=== PATIENT | female | born 1950 | race Caucasian/White ===

== ENCOUNTER 2016-07-20 14:19 | Emergency (ER) | payer BC ==
[~2016-07-20] VITALS: Ht 165.1 cm; Wt 83.6 kg
[~2016-07-20 14:19] MED LIST: Atarax,Vistaril PO; BUDEPRION SR150 MG PO; CELEBREX200 MG PO; CLEOCIN HCL75 MG PO; Coumadin Daily Dose PO; DURAGESIC12 MICROGR TD; FLEXERIL10 MG PO; FUROSEMIDE80 MG PO; GARLIC OIL1 EAC1 PO; HYDROCODON-ACE1 EAC5 PO; HYDROCODON-ACE1 EAC7 PO; IRON325 MG PO; K-DUR20 MEQ PO; LASIX80 MG PO; LEXAPRO20 MG PO; MIRALAX, GLYCO255 G1 PO; PRILOSEC OTC20 MG PO; PRILOSEC20 MG PO; SYNTHROID200 MCG PO; SYNTHROID25 MCG PO; THERA TEARS1 EAC1 OP; TIZANIDINE HCL4 MG PO; TOVIAZ4 MG PO; TOVIAZ8 MG PO; TRAZODONE HCL50 MG PO; TYLENOL WITH C1 EACH PO; VITAMIN B-12500 MC3 PO; VITAMIN B12-FO1 EACH PO; VITAMIN C1000 MG PO; VITAMIN C500 MG PO; VITAMIN D35000 UNIT PO; Vitamin D PO; WELLBUTRIN SR150 MG PO; [UNRECOGNIZED DRUG - REMARK]
[2016-07-20 16:19] LABS: BASOPHIL COUNT 0.1 K/uL (0-0.1); EOSINOPHIL (%) 1.6 % (0-5); EOSINOPHIL COUNT 0.2 K/uL (0-0.3); HEMATOCRIT 44.9 % (36.0-46.0); IMMATURE GRANULOCYTE (%) 0.3 % (0.0-0.7); INSTRUMENT ABS NEUTROPHIL CT 7.5 K/uL; LYMPHOCYTE COUNT 1.2 K/uL (1.0-2.8); MCH 29.2 PG (29.0-34.0); MCHC 32.5 G/DL (30.0-36.0); MCV 89.8 FL (83-99); MEAN PLAT.VOLUME 9.2 uM^3 (9.5-12.4); MONOCYTE (%) 5.6 % (3-12); MONOCYTE COUNT 0.5 K/uL (0-0.8); NEUTROPHIL (%) 79.3 % (45-76); NEUTROPHIL COUNT 7.5 K/uL (1.8-6.4); PLATELET COUNT 263 K/uL (156-360); RBC DIS.WIDTH-CV 12.7 % (11.8-14.6); WHITE BLOOD COUNT 9.4 K/uL (4.1-10.2)
[2016-07-20 16:35] LABS: CHLORIDE 104 mEq/L (99-109); POTASSIUM 4.4 mEq/L (3.7-5.4); SODIUM 141 mEq/L (136-147)
[2016-07-20 16:36] LABS: GLUCOSE 99 mg/dL (70-99)
[2016-07-20 16:38] LABS: ANION GAP 12 MEQ/L (2-14)
[2016-07-20 16:40] LABS: GFR ESTIMATE (CALCULATED) > 59 mL/min/
[2016-07-20 16:41] LABS: UREA NITROGEN (BUN) 17 mg/dL (9-23)
[2016-07-20] MEDS ORDERED: TRAMADOL HCL50 MG PO (17:46)
[2016-07-20] MEDS ORDERED: LEVAQUIN250 MG PO (17:46)
[2016-07-20 20:27] VITALS: BP 140/70
== END 2016-07-20 20:09 | disposition home or self-care (01) ==
LOC: EME 14:19
PROVIDERS: Physician Assistant
DX: L04.0 Acute lymphadenitis of face, head and neck (principal); E05.00 Thyrotoxicosis with diffuse goiter without thyrotoxic crisis or storm; K21.9 Gastro-esophageal reflux disease without esophagitis
CPT/HCPCS: 70360; 80048; 84443; 85025; 87651 90; 99281; 99284; J1100